=== PATIENT | female | born 1955 | race Asian ===

== ENCOUNTER → 2020-09-16 13:07 | Outpatient (CLI) | payer OTHER, SELFPAY ==
[2020-09-18 01:59] LABS: COVID19 Sendout Not Detected (Not Detect)
== END ==
PROVIDERS: PCP Family Medicine; Visit Provider Student in an Organized Health Care Education/Training Program
DX: Z11.59 Encounter for screening for other viral diseases (principal)
CPT/HCPCS: 87635

== ENCOUNTER 2020-09-19 12:36 | Day surgery (SDC) | payer OTHER, SELFPAY ==
[2020-09-19] VITALS (7 sets, daily range): BP systolic 125–182; BP diastolic 66–83; PULSE 47–62; RESP 12–18; TEMP 36.7–37.2; O2SAT 95–98; BMI 23.0
--- NOTE | 2020-09-19 | PATH_ITS ---
[facility] Accession Number: [id number] . 01 Material submitted: . PART A: duodenum - DUODENUM PART B: stomach - STOMACH PART C: gastrointestinal site - GASTRIC POLYP PART D: esophagus - ESOPHAGUS . 02 Diagnosis: A. Duodenum, Biopsy: Duodenal mucosa with no diagnostic abnormality. Negative for active inflammation, features of sprue, dysplasia, or malignancy. . B. Stomach, Biopsy: Gastric body mucosa with mild chronic inflammation. Negative for Helicobacter organisms by immunohistochemistry. Negative for intestinal metaplasia. Negative for dysplasia or malignancy. . C. Gastric Polyp, Biopsy: Fundic gland polyp. No evidence of Helicobacter organisms on H/E stain. Negative for intestinal metaplasia. Negative for dysplasia and malignancy. . D. Esophagus, Biopsy: Squamous epithelium with no diagnostic abnormality. Intraepithelial eosinophils are not increased. Negative for dysplasia and malignancy. [facility] 09/25/2020 1341 Local . 02 Electronically signed: . Brodie Mo MD, PhD, Pathologist NPI- [id number] . 01 Gross description: . A. Specimen A is received in formalin, labeled duodenum and consists of a 0.4 x 0.3 x 0.2 cm velazquez-pink fragment of soft tissue, which is entirely submitted in cassette A1. B. Specimen B is received in formalin, labeled stomach and consists of two velazquez-white fragments of soft tissue, measuring 0.4 x 0.3 x 0.2 cm in aggregate. The specimen is entirely submitted in cassette B1. C. Specimen C is received in formalin, labeled gastric polyp and consists of a 0.4 x 0.4 x 0.3 cm velazquez fragment of soft tissue, which is entirely submitted in cassette C1. D. Specimen D is received in formalin, labeled esophagus and consists of a 0.3 x 0.2 x 0.1 cm velazquez-white fragment of soft tissue, which is entirely submitted in cassette D1. ([id number]) /[facility] 09/20/2020 1638 Local . 02 Microscopic: . B. An immunohistochemical stain was performed to evaluate for Helicobacter organisms and is negative. The control stain showed appropriate reactivity. . * This test was developed and its performance characteristics determined by [facility]. It has not been cleared or approved by the U.S. Food and Drug Administration. The FDA has determined that such clearance or approval is not necessary. This test is used for clinical purposes. It should not be regarded as investigational or for research. . 02 Pathologist provided ICD-10: K21.9, K29.70, K31.7 . 02 CPT . 191362, 139727, 969474, [id number], [id number] Performed at: 01 [facility] [address] [id number] MD Guillermo Evans MD Phone: [phone] Performed at: 02 [facility] [address] [place], [place] [id number] MD Alona Trejo MD Phone: [phone]
[2020-09-19] MEDS: LACTATED RINGERS 1,000 ML 125 ML IV (12:55)
--- NOTE | 2020-09-19 13:39 | PM.PREOP ---
Pre-operative Note COVID-19 COVID-19 status: Negative Result date/Date tested (Pos, Neg/Pending): 09/16/20 Interval Note History & Physical reviewed/Exam performed by Physician: Yes Changes to H&P: No ASA Class (for procedural sedation): II
[2020-09-19] MEDS: LIDOCAINE 4% SOLN 50 ML 20 ML TOP (13:43)
--- NOTE | 2020-09-19 14:01 | P.OP.ENDO_ITS ---
Operative Date/Time/Diagnoses Date of procedure: 09/19/20 Time of procedure: 14:01 Pre-op diagnosis: Epigastric pain, heartburn, overdue for screening colonoscopy Post-op diagnosis: other (Gastric polyp, gastritis, low-grade shallow gastric ulcers, no hiatal hernia, normal Z-line) Procedure & Clinicians Study performed: Esophagogastroduodenoscopy Procedural sedation performed by the endoscopist Biopsies of duodenum, stomach, gastric polyp, distal esophagus Colonoscopy Same procedure as scheduled: Yes Indications: Heartburn, epigastric pain, 10 years since last screening colonoscopy Surgeon: Diamante Valles Procedure Notes SCOAP/Timeout: Performed Procedure in detail: The patient was brought to the room and placed in left lateral decubitus position with all bony prominences padded. A bite block was positioned in the patient's mouth to protect the lips, teeth, and tongue for the procedure. A time-out was performed and then the patient was given procedural sedation starting with 2 mg of Versed and 100 mcg of fentanyl. Total of 4 mg of Versed and 200 micro g of fentanyl were used for the entire procedure. Vitals were monitored throughout the procedure and remained stable. Once adequately sedated, the procedure was begun. The lubricated gastroscope was passed through the bite block and across the tongue and into the esophagus without incident. A tubular view of the esophagus was maintained as the scope was advanced through the esophagus and into the stomach. The scope was advanced through the stomach and to the pylorus. The scope was gently popped through the pylorus and into the duodenal bulb. The scope was flexed and advanced into the second and third portions of the duodenum. The duodenum and duodenal bulb revealed some mild duodenitis. Biopsies were taken. The scope was withdrawn into the stomach. The stomach revealed some mild to moderate gastritis with a few shallow ulcers, with no active bleeding or visible vessels. Biopsies were taken. There was a 0.5cm polyp in the upper stomach/fundus. This was biopsied. The scope was retroflexed and the gastric cardia was examined. The hiatus appeared normal, with no hiatal hernia. The scope was then straightened, and withdrawn into the esophagus. The Z-line appeared normal. Biopsies were taken of the distal esophagus. The distal esophagus appeared normal. There was some corkscrewing of the esophageal contraction as I withdrew the scope. The scope was then withdrawn through the esophagus with a tubular view. The scope was then withdrawn from the patient and attention was turned to the colonoscopy portion of the procedure. A rectal exam was performed revealing no abnormalities. The colonoscope was then introduced to the rectum and advanced to the cecum in the usual fashion. The cecum was identified by the appendiceal orifice, the mucosal tri-fold, and the ileocecal valve. The scope was then retracted while rotating side to side and examining each mucosal fold. At the conclusion of the procedure retrofl exion was performed and small grade 1-2 internal hemorrhoids without stigmata of bleeding were seen. The scope was then withdrawn from the rectum the procedure was concluded. The patient tolerated the procedure well and was transferred to the PACU in stable condition. Scope withdrawal time: 8 Sedation minutes: 37 Findings: gastritis and polyp (Gastric) Specimen(s): other (Duodenal biopsy, stomach biopsy, gastric polyp, distal esophagus) Complications: none Impression: No significant hiatal hernia. Moderate gastritis. Normal colon. Post-procedure Recommendations: Colonscopy in 10 years and Other recommendation (Pending biopsy results) Follow up: weeks (In 2 weeks) Disposition: PACU
[2020-09-19] MEDS: MIDAZOLAM 5 MG/5 ML VIAL IV (14:05)
[2020-09-19] MEDS: fentaNYL 250 MCG/5 ML INJ IV (14:05)
== END 2020-09-19 15:20 | disposition home or self-care (01) ==
PROVIDERS: PCP Physician Assistant; Referring Provider Physician Assistant; Visit Provider Surgery
PROC: 0DJ08ZZ Inspection of Upper Intestinal Tract, Via Natural or Artificial Opening Endoscopic (ICD-10-PCS; CPT 43235; principal; 2020-09-19 13:45)
PROC: 0DJD8ZZ Inspection of Lower Intestinal Tract, Via Natural or Artificial Opening Endoscopic (ICD-10-PCS; CPT 45378; 2020-09-19 13:45)
DX: Z12.11 Encounter for screening for malignant neoplasm of colon (principal); K21.9 Gastro-esophageal reflux disease without esophagitis; K64.0 First degree hemorrhoids; K29.50 Unspecified chronic gastritis without bleeding; K31.7 Polyp of stomach and duodenum
CPT/HCPCS: 43239; 45378; 99152; 99153; J2250; J3010

== ENCOUNTER → 2022-11-01 13:51 | Outpatient (CLI) | payer MEDICARE, SELFPAY ==
--- NOTE | 2022-11-01 13:54 | DI.NM.S_ITS ---
PROCEDURE: NM EXERCISE TREADMILL NON NUC COMPARISON: None. INDICATIONS: Other chest pain FINDINGS: Rest ECG sinus rhythm. Eleazar protocol 9:13, maximum heart rate 139 bpm (90% predicted), maximum blood pressure 170/70, 10.1 METS, ARELI -44%. Stress ECG sinus tachycardia, no ST segment changes, ectopy or arrhythmia. No reported exercise-induced chest pain. IMPRESSION: No evidence of exercise-induced ischemia or arrhythmia. Normal blood pressure response to exercise. Very good exercise capacity. Dictated by: Mendy Woodward D.O. on 11/01/2022 at 16:22 Approved by: Mendy Woodward D.O. on 11/01/2022 at 16:23
[2022-11-01 14:44] LABS: COVID19 -Nasal RAPID Negative (Negative)
== END ==
PROVIDERS: PCP Nurse Practitioner; Referring Provider Nurse Practitioner; Visit Provider Nurse Practitioner
DX: R07.89 Other chest pain (principal); Z20.822 Contact with and (suspected) exposure to COVID-19
CPT/HCPCS: 87635; 93017

== ENCOUNTER → 2024-04-15 | Outpatient (CLI) | payer MEDICARE, SELFPAY ==
--- NOTE | 2024-04-16 19:34 | DI.NM.S_ITS ---
DATE OF SERVICE: 04/15/2024 PROCEDURE: Exercise stress test. INDICATIONS: Chest pain, underlying hypertension, and hyperlipidemia. CARDIAC STRESS: The patient underwent exercise stress test under the supervision of an attending staff. The patient walked on the Eleazar protocol for 9 minutes and 03 seconds, achieved maximum heart rate of 134, which was 92% of the target heart rate, ARELI -46%, 10.1 METS of workload. Baseline rhythm was sinus. During exercise, patient had significant artifacts. However, in immediate recovery, there were no obvious inducible ischemic changes. No significant arrhythmias. The patient did not have any chest pain. Had some shortness of breath. Oxygen saturation 96% on room air. CONCLUSION: Exercise stress test did not reveal any obvious inducible ischemic changes. Good exercise tolerance. ARELI -46%. Resting blood pressure 122/82 and peak blood pressure 164/90. Achieved 92% of target heart rate. 10.1 METS of workload. No significant arrhythmias. No anginal symptoms. Overall, low-risk exercise stress test. Vignesh Musa - SILVIO/lyudmila/FERMÍN doc#: [id number]/job#: [id number] dd: 04/16/2024 12:58:00 dt: 04/16/2024 17:58:00 DICTATING /COPIES TO: Bereket Fairbanks MD COPIES MNE: MARIBELL;
== END ==
LOC: RAD 14:52
PROVIDERS: PCP Nurse Practitioner; Referring Provider Internal Medicine Cardiovascular Disease; Visit Provider Internal Medicine Cardiovascular Disease
DX: R07.9 Chest pain, unspecified (principal); I10 Essential (primary) hypertension; E78.5 Hyperlipidemia, unspecified
CPT/HCPCS: 93017